=== PATIENT | male | born 1955 | race Caucasian/White ===

== ENCOUNTER 2025-07-29 23:55 | Inpatient (IN) | payer OTHER ==
[~2025-07-29] VITALS: Ht 180.3 cm; Wt 101.0 kg
[2025-07-29 23:57] VITALS: BP 201/103
[2025-07-30] VITALS (9 sets, daily range): BP systolic 140–184; BP diastolic 57–96
[2025-07-30] MEDS ORDERED: Albuterol Sulf/Ipratropium 3 ML VIAL NEB ONE ×2 (00:05→00:26)
[2025-07-30 00:27] LABS: BASO # 0.0 10*3/uL (0.0-0.1); BASO % 0.3 % (0.0-1.0); EOS # 0.0 10*3/uL (0.0-0.4); EOS % 0.1 % (1.0-4.0); MEAN CELL VOLUME 95.8 fl (80.0-94.0); MEAN CORPUSCULAR HGB 34.5 pg (27.0-31.0); MEAN PLATELET VOLUME 9.2 fl (9.6-12.3); MONO # 1.1 10*3/uL (0.1-1.0); MONO % 8.7 % (3.0-9.0); NEUT # 10.2 10*3/uL (2.3-7.9); NEUT % 79.8 % (47.0-73.0); NUCLEATED RED BLOOD CELL 0.0 10*3/uL (0.0-0.0); NUCLEATED RED BLOOD CELL 0.2 % (0.0-0.0); PLATELET COUNT AUTOMATED 197 10*3/uL (130-400); RED CELL DISTRI WIDTH 13.7 % (0-14.5)
[2025-07-30 00:53] LABS: BUN 25.0 mg/dl (9-23); SGPT/ALT 55.0 U/L (5-49)
[2025-07-30] MEDS ORDERED: MAGNESIUM SULFATE 50 ML IV SCH (01:00)
[2025-07-30] MEDS ORDERED: 'CLONIDINE0.1 MG PO (01:18)
[2025-07-30] MEDS ORDERED: PRAVASTATIN SOD40 MG PO (01:18)
[2025-07-30] MEDS ORDERED: BREYNA 160-4.10.3 GM INH (01:20)
[2025-07-30] MEDS ORDERED: FENOFIBRATE MI134 MG PO (01:20)
[2025-07-30] MEDS ORDERED: LISINOPRIL40 MG PO (01:21)
[2025-07-30] MEDS ORDERED: OMEPRAZOLE MAGN20 MG PO (01:21)
[2025-07-30] MEDS ORDERED: METOPROLOL TAR100 M1 PO (01:21)
[2025-07-30] MEDS ORDERED: VENT7GM INH (01:23)
[2025-07-30 02:17] LABS: ABG O2 SATURATION 98.8 % (94.0-98.0); ARTERIAL BLOOD GAS PH 7.332 (7.350-7.450); ARTERIAL BLOOD GAS PO2 145.7 mmHg (83.0-108.0)
[2025-07-30 02:18] LABS: ABG BASE EXCESS -9.1 mmol/L (-2.0-3.0)
[2025-07-30] MEDS ORDERED: ACETAMINOPHEN 325 MG TAB PO PRN (04:20)
[2025-07-30] MEDS ORDERED: Albuterol Sulf/Ipratropium 3 ML VIAL NEB PRN (04:25)
[2025-07-30 04:31] LABS: BILIRUBIN Negative (Negative); BLOOD 3+ (Negative); CLARITY Clear (Clear); COLOR Dark Yellow (Yellow); KETONE 2+ (Negative); LEUKO ESTERASE Negative (Negative); NITRITE Negative (Negative); PH 5.5 (4.5-8.0); SPECIFIC GRAVITY 1.020 (1.001-1.030); UROBILINOGEN 1.0 E.U./dl (0.0-1.0)
[2025-07-30] MEDS ORDERED: SODIUM CHLORIDE 0.9% 500 ML IV ONE (04:35)
[2025-07-30 04:50] LABS: BACTERIA 1+; MUCOUS 1+; WBC 0-2 wbc/hpf (0-5)
[2025-07-30] MEDS ORDERED: LEVOFLOXACIN 150 ML IV SCH (05:00)
[2025-07-30 08:16] LABS: BUN 18.0 mg/dl (9-23)
[2025-07-30] MEDS ORDERED: SODIUM CHLORIDE 0.9% 1,000 ML IV SCH (09:00)
[2025-07-30] MEDS ORDERED: FOLIC ACID 1 MG TAB PO SCH (10:00)
[2025-07-30] MEDS ORDERED: Thiamine 100 MG TAB PO SCH (10:00)
[2025-07-30 13:41] LABS: BUN 26.0 mg/dl (9-23)
[2025-07-30 16:17] LABS: BUN 26.0 mg/dl (9-23)
[2025-07-30] MEDS ORDERED: METHOCARBAMOL 750 MG TAB PO PRN (17:10)
[2025-07-30] MEDS ORDERED: hydrOXYzine 50 MG CAP PO PRN (17:10)
[2025-07-30] MEDS ORDERED: Water, Sterile 10 ML VIAL IV PRN (17:10)
[2025-07-30] MEDS ORDERED: Dicyclomine Hydrochloride 20 MG TAB PO PRN (17:10)
[2025-07-30] MEDS ORDERED: LORazepam 2 MG/ML VIAL IV PRN (17:10)
[2025-07-30] MEDS ORDERED: BUDESONIDE 0.5 MG AMP NEB SCH (18:00)
[2025-07-30] MEDS ORDERED: LORazepam 1 MG TAB PO SCH (18:00)
[2025-07-30 20:22] LABS: BUN 25.0 mg/dl (9-23)
[2025-07-30] MEDS ORDERED: SODIUM BICARBONATE 75 MEQ in SODIUM CHLORIDE 0.45% 1,000 ML IV ONE (20:50)
[2025-07-30] MEDS ORDERED: ATORVASTATIN CALCIUM 10 MG TAB PO SCH (22:00)
[2025-07-31] VITALS (9 sets, daily range): BP systolic 92–143; BP diastolic 47–87
[2025-07-31 00:26] LABS: BUN 27.0 mg/dl (9-23)
[2025-07-31 05:14] LABS: BUN 27.0 mg/dl (9-23)
[2025-07-31] MEDS ORDERED: OMEPRAZOLE 20 MG CAP PO SCH (06:00)
[2025-07-31 06:16] LABS: BASO # 0.0 10*3/uL (0.0-0.1); BASO % 0.2 % (0.0-1.0); EOS # 0.0 10*3/uL (0.0-0.4); EOS % 0.0 % (1.0-4.0); MEAN CELL VOLUME 96.5 fl (80.0-94.0); MEAN CORPUSCULAR HGB 34.2 pg (27.0-31.0); MEAN PLATELET VOLUME 9.8 fl (9.6-12.3); MONO # 0.9 10*3/uL (0.1-1.0); MONO % 7.7 % (3.0-9.0); NEUT # 9.5 10*3/uL (2.3-7.9); NEUT % 85.9 % (47.0-73.0); NUCLEATED RED BLOOD CELL 0.0 % (0.0-0.0); NUCLEATED RED BLOOD CELL 0.0 10*3/uL (0.0-0.0); PLATELET COUNT AUTOMATED 198 10*3/uL (130-400); RED CELL DISTRI WIDTH 13.7 % (0-14.5)
[2025-07-31 08:06] LABS: BUN 25.0 mg/dl (9-23)
[2025-07-31] MEDS ORDERED: SODIUM CHLORIDE 0.9% 1,000 ML IV SCH (08:20)
[2025-07-31] MEDS ORDERED: FENOFIBRATE 145 MG TAB PO SCH (10:00)
[2025-07-31] MEDS ORDERED: LISINOPRIL 40 MG TAB PO SCH (10:00)
[2025-07-31] MEDS ORDERED: Acetaminophen/Hydrocodone 5 MG/325 MG TABLET PO PRN (11:05)
[2025-07-31 14:24] LABS: BUN 25.0 mg/dl (9-23)
[2025-07-31] MEDS ORDERED: SODIUM CHLORIDE 1 GM TAB PO SCH ×2 (15:05→17:00)
[2025-07-31] MEDS ORDERED: LORazepam 1 MG TAB PO SCH (20:00)
[2025-08-01] VITALS (12 sets, daily range): BP systolic 104–148; BP diastolic 51–73
[2025-08-01 04:47] LABS: BUN 25 mg/dl (9-23)
[2025-08-01 06:05] LABS: BASO # 0.0 10*3/uL (0.0-0.1); BASO % 0.1 % (0.0-1.0); EOS # 0.0 10*3/uL (0.0-0.4); EOS % 0.0 % (1.0-4.0); MEAN CELL VOLUME 99.1 fl (80.0-94.0); MEAN CORPUSCULAR HGB 34.5 pg (27.0-31.0); MEAN PLATELET VOLUME 9.3 fl (9.6-12.3); MONO # 0.7 10*3/uL (0.1-1.0); MONO % 10.6 % (3.0-9.0); NEUT # 5.6 10*3/uL (2.3-7.9); NEUT % 83.2 % (47.0-73.0); NUCLEATED RED BLOOD CELL 0.0 % (0.0-0.0); NUCLEATED RED BLOOD CELL 0.0 10*3/uL (0.0-0.0); PLATELET COUNT AUTOMATED 160 10*3/uL (130-400); RED CELL DISTRI WIDTH 13.7 % (0-14.5)
[2025-08-01] MEDS ORDERED: SODIUM CHLORIDE 0.9% 1,000 ML IV SCH (11:05)
[2025-08-01] MEDS ORDERED: LORazepam 1 MG TAB PO PRN (22:00)
[2025-08-02] VITALS (11 sets, daily range): BP systolic 106–147; BP diastolic 49–75
[2025-08-02 05:37] LABS: BUN 24 mg/dl (9-23); SGPT/ALT 36 U/L (5-49)
[2025-08-02] MEDS ORDERED: LEVOFLOXACIN 150 ML IV SCH (06:00)
[2025-08-02 06:05] LABS: BASO # 0.0 10*3/uL (0.0-0.1); BASO % 0.1 % (0.0-1.0); EOS # 0.0 10*3/uL (0.0-0.4); EOS % 0.1 % (1.0-4.0); MEAN CELL VOLUME 97.5 fl (80.0-94.0); MEAN CORPUSCULAR HGB 34.3 pg (27.0-31.0); MEAN PLATELET VOLUME 9.7 fl (9.6-12.3); MONO # 0.8 10*3/uL (0.1-1.0); MONO % 11.5 % (3.0-9.0); NEUT # 5.5 10*3/uL (2.3-7.9); NEUT % 82.2 % (47.0-73.0); NUCLEATED RED BLOOD CELL 0.0 10*3/uL (0.0-0.0); NUCLEATED RED BLOOD CELL 0.6 % (0.0-0.0); PLATELET COUNT AUTOMATED 155 10*3/uL (130-400); RED CELL DISTRI WIDTH 13.9 % (0-14.5)
[2025-08-02] MEDS ORDERED: FUROSEMIDE 40 MG/4 ML VIAL IV ONE (12:10)
[2025-08-03] VITALS (8 sets, daily range): BP systolic 114–155; BP diastolic 51–80
[2025-08-03 06:00] LABS: BASO # 0.0 10*3/uL (0.0-0.1); BASO % 0.1 % (0.0-1.0); EOS # 0.0 10*3/uL (0.0-0.4); EOS % 0.0 % (1.0-4.0); MEAN CELL VOLUME 98.0 fl (80.0-94.0); MEAN CORPUSCULAR HGB 34.2 pg (27.0-31.0); MEAN PLATELET VOLUME 9.5 fl (9.6-12.3); MONO # 0.6 10*3/uL (0.1-1.0); MONO % 9.0 % (3.0-9.0); NEUT # 6.1 10*3/uL (2.3-7.9); NEUT % 84.9 % (47.0-73.0); NUCLEATED RED BLOOD CELL 0.0 % (0.0-0.0); NUCLEATED RED BLOOD CELL 0.0 10*3/uL (0.0-0.0); PLATELET COUNT AUTOMATED 160 10*3/uL (130-400); RED CELL DISTRI WIDTH 14.1 % (0-14.5)
[2025-08-03 06:15] LABS: BUN 21 mg/dl (9-23)
[2025-08-03] MEDS ORDERED: FUROSEMIDE 40 MG/4 ML VIAL IV ONE (11:15)
[2025-08-04] VITALS (7 sets, daily range): BP systolic 99–178; BP diastolic 53–82
[2025-08-04 05:29] LABS: BUN 24 mg/dl (9-23)
[2025-08-04] MEDS ORDERED: LORazepam 1 MG TAB PO ONE (20:15)
[2025-08-05] VITALS (9 sets, daily range): BP systolic 140–180; BP diastolic 67–94
[2025-08-05] MEDS ORDERED: LORazepam 1 MG TAB PO ONE (04:55)
[2025-08-05 06:38] LABS: BASO # 0.1 10*3/uL (0.0-0.1); BASO % 0.5 % (0.0-1.0); EOS # 0.2 10*3/uL (0.0-0.4); EOS % 1.4 % (1.0-4.0); MEAN CORPUSCULAR HGB 34.8 pg (27.0-31.0); MEAN PLATELET VOLUME 10.2 fl (9.6-12.3); MONO # 1.3 10*3/uL (0.1-1.0); MONO % 10.0 % (3.0-9.0); NEUT # 9.9 10*3/uL (2.3-7.9); NEUT % 79.3 % (47.0-73.0); NUCLEATED RED BLOOD CELL 0.0 % (0.0-0.0); NUCLEATED RED BLOOD CELL 0.0 10*3/uL (0.0-0.0); RED CELL DISTRI WIDTH 14.6 % (0-14.5)
[2025-08-05 06:39] LABS: MEAN CELL VOLUME 101.9 fl (80.0-94.0); PLATELET COUNT AUTOMATED 239 10*3/uL (130-400)
[2025-08-05 07:02] LABS: BUN 27 mg/dl (9-23)
[2025-08-05] MEDS ORDERED: LORazepam 1 MG TAB PO SCH (08:00)
[2025-08-06] VITALS: BP 143/73
[2025-08-06 06:32] LABS: BASO # 0.0 10*3/uL (0.0-0.1); BASO % 0.4 % (0.0-1.0); EOS # 0.1 10*3/uL (0.0-0.4); EOS % 1.0 % (1.0-4.0); MEAN CELL VOLUME 102.6 fl (80.0-94.0); MEAN CORPUSCULAR HGB 34.2 pg (27.0-31.0); MEAN PLATELET VOLUME 9.7 fl (9.6-12.3); MONO # 1.1 10*3/uL (0.1-1.0); MONO % 11.6 % (3.0-9.0); NEUT # 7.3 10*3/uL (2.3-7.9); NEUT % 76.4 % (47.0-73.0); NUCLEATED RED BLOOD CELL 0.0 % (0.0-0.0); NUCLEATED RED BLOOD CELL 0.0 10*3/uL (0.0-0.0); PLATELET COUNT AUTOMATED 198 10*3/uL (130-400); RED CELL DISTRI WIDTH 14.8 % (0-14.5)
[2025-08-06 07:10] LABS: BUN 25 mg/dl (9-23)
[2025-08-06 08:00] VITALS: BP 159/70
[2025-08-06] MEDS ORDERED: IOHEXOL 350 MG/ML 100 ML VIAL IV ONE ×2 (09:15→10:14)
[2025-08-06] MEDS ORDERED: SODIUM CHLORIDE 0.9% 100 ML BAG IV ONE (09:15)
[2025-08-06] MEDS ORDERED: LORazepam 1 MG TAB PO SCH ×2 (10:00)
[2025-08-06] MEDS ORDERED: SODIUM CHLORIDE 0.9% 100 ML IV ONE (10:14)
[2025-08-06 12:00] VITALS: BP 155/69
[2025-08-06 16:00] VITALS: BP 152/69
[2025-08-06 20:00] VITALS: BP 157/77
[2025-08-07] VITALS: BP 133/65
[2025-08-07 05:04] LABS: BUN 25 mg/dl (9-23); SGPT/ALT 28 U/L (5-49)
[2025-08-07 06:05] LABS: BASO # 0.0 10*3/uL (0.0-0.1); BASO % 0.3 % (0.0-1.0); EOS # 0.0 10*3/uL (0.0-0.4); EOS % 0.0 % (1.0-4.0); MEAN CELL VOLUME 102.5 fl (80.0-94.0); MEAN CORPUSCULAR HGB 33.7 pg (27.0-31.0); MEAN PLATELET VOLUME 10.1 fl (9.6-12.3); MONO # 1.1 10*3/uL (0.1-1.0); MONO % 11.0 % (3.0-9.0); NEUT # 7.7 10*3/uL (2.3-7.9); NEUT % 78.8 % (47.0-73.0); NUCLEATED RED BLOOD CELL 0.0 % (0.0-0.0); NUCLEATED RED BLOOD CELL 0.0 10*3/uL (0.0-0.0); PLATELET COUNT AUTOMATED 219 10*3/uL (130-400); RED CELL DISTRI WIDTH 14.7 % (0-14.5)
[2025-08-07 08:00] VITALS: BP 148/62
[2025-08-07 12:00] VITALS: BP 132/85
[2025-08-07] MEDS ORDERED: Acetaminophen/Hydrocodone 5 MG/325 MG TABLET PO PRN (15:40)
[2025-08-07 16:00] VITALS: BP 150/75
[2025-08-07 20:00] VITALS: BP 148/83
[2025-08-08] VITALS: BP 146/60
[2025-08-08 04:29] LABS: BASO # 0.0 10*3/uL (0.0-0.1); BASO % 0.2 % (0.0-1.0); EOS # 0.0 10*3/uL (0.0-0.4); EOS % 0.0 % (1.0-4.0); MEAN CELL VOLUME 103.4 fl (80.0-94.0); MEAN CORPUSCULAR HGB 33.9 pg (27.0-31.0); MEAN PLATELET VOLUME 10.3 fl (9.6-12.3); MONO # 0.6 10*3/uL (0.1-1.0); MONO % 5.7 % (3.0-9.0); NEUT # 9.1 10*3/uL (2.3-7.9); NEUT % 86.7 % (47.0-73.0); NUCLEATED RED BLOOD CELL 0.0 % (0.0-0.0); NUCLEATED RED BLOOD CELL 0.0 10*3/uL (0.0-0.0); PLATELET COUNT AUTOMATED 203 10*3/uL (130-400); RED CELL DISTRI WIDTH 14.4 % (0-14.5)
[2025-08-08 04:50] LABS: BUN 25 mg/dl (9-23)
[2025-08-08 08:00] VITALS: BP 140/76
[2025-08-08 12:00] VITALS: BP 138/60
[2025-08-08 16:00] VITALS: BP 145/70
[2025-08-08 20:00] VITALS: BP 150/73
[2025-08-08] MEDS ORDERED: NYSTATIN 15 GM BOT T SCH (22:00)
[2025-08-09] VITALS: BP 129/70
[2025-08-09 06:28] LABS: BUN 28 mg/dl (9-23)
[2025-08-09 06:50] LABS: MEAN CELL VOLUME 103.0 fl (80.0-94.0); MEAN CORPUSCULAR HGB 34.1 pg (27.0-31.0); MEAN PLATELET VOLUME 10.1 fl (9.6-12.3); NUCLEATED RED BLOOD CELL 0.0 % (0.0-0.0); NUCLEATED RED BLOOD CELL 0.0 10*3/uL (0.0-0.0); PLATELET COUNT AUTOMATED 206 10*3/uL (130-400); RED CELL DISTRI WIDTH 14.2 % (0-14.5)
[2025-08-09 06:55] LABS: MANUAL DIFF REFLEX YES
[2025-08-09 07:40] LABS: PLATELET SUFFICIENCY NORMAL (NORMAL); STOMATOCYTE FEW
[2025-08-09 08:00] VITALS: BP 133/63
[2025-08-09] MEDS ORDERED: predniSONE 10 MG TAB PO SCH (10:00)
[2025-08-09 12:00] VITALS: BP 109/47
[2025-08-09 16:00] VITALS: BP 127/69
[2025-08-09 20:00] VITALS: BP 152/74
[2025-08-10] VITALS: BP 140/72
[2025-08-10 08:00] VITALS: BP 145/68
[2025-08-10] MEDS ORDERED: Albuterol Sulf/Ipratropium 3 ML VIAL NEB ONE (11:50)
[2025-08-10 12:00] VITALS: BP 132/58
[2025-08-10] MEDS ORDERED: AMLODIPINE BESYL5 MG PO (13:05)
[2025-08-10] MEDS ORDERED: HYDROXYZINE PAM50 MG PO (13:05)
[2025-08-10] MEDS ORDERED: 'CLONIDINE0.1 MG PO (13:05)
[2025-08-10] MEDS ORDERED: PREDNISONE10 MG PO (13:05)
[2025-08-10] MEDS ORDERED: NYAMYC15 GM T (13:05)
[2025-08-10] MEDS ORDERED: HYDROCODONE-AC1 EAC1 PO (13:05)
[2025-08-10] MEDS ORDERED: VENTOLIN 02.5 MG/3 M NEB (13:05)
[2025-08-10] MEDS ORDERED: BIPAP INH (13:08)
== END 2025-08-10 15:03 | disposition home or self-care (01) | DRG 871 ==
LOC: ED 23:55 → ICCU 07-30 04:06 → EDHOLD 07-30 04:06 → ICCU 07-30 05:38 → 4E 08-04 14:37 → 5E 08-09 07:13
PROVIDERS: Emergency Medicine; Internal Medicine; Internal Medicine Nephrology; Nurse Practitioner Family; Student in an Organized Health Care Education/Training Program; ADMIT Internal Medicine; ATTEND Internal Medicine
PROC: 5A09357 Assistance with Respiratory Ventilation, Less than 24 Consecutive Hours, Continuous Positive Airway Pressure (ICD-10-PCS; principal; 2025-07-30)
PROC: 5A09357 Assistance with Respiratory Ventilation, Less than 24 Consecutive Hours, Continuous Positive Airway Pressure (ICD-10-PCS; 2025-07-31)
PROC: 5A09357 Assistance with Respiratory Ventilation, Less than 24 Consecutive Hours, Continuous Positive Airway Pressure (ICD-10-PCS; 2025-08-01)
PROC: 5A09357 Assistance with Respiratory Ventilation, Less than 24 Consecutive Hours, Continuous Positive Airway Pressure (ICD-10-PCS; 2025-08-02)
PROC: 5A09357 Assistance with Respiratory Ventilation, Less than 24 Consecutive Hours, Continuous Positive Airway Pressure (ICD-10-PCS; 2025-08-05)
PROC: 5A09357 Assistance with Respiratory Ventilation, Less than 24 Consecutive Hours, Continuous Positive Airway Pressure (ICD-10-PCS; 2025-08-06)
PROC: 5A09357 Assistance with Respiratory Ventilation, Less than 24 Consecutive Hours, Continuous Positive Airway Pressure (ICD-10-PCS; 2025-08-07)
PROC: 5A09357 Assistance with Respiratory Ventilation, Less than 24 Consecutive Hours, Continuous Positive Airway Pressure (ICD-10-PCS; 2025-08-08)
PROC: 5A09357 Assistance with Respiratory Ventilation, Less than 24 Consecutive Hours, Continuous Positive Airway Pressure (ICD-10-PCS; 2025-08-10)
DX: A41.9 Sepsis, unspecified organism (principal); J15.69 Pneumonia due to other Gram-negative bacteria; J96.01 Acute respiratory failure with hypoxia; N17.0 Acute kidney failure with tubular necrosis; J45.901 Unspecified asthma with (acute) exacerbation; E87.1 Hypo-osmolality and hyponatremia; J90 Pleural effusion, not elsewhere classified; F10.931 Alcohol use, unspecified with withdrawal delirium; J98.4 Other disorders of lung; E83.42 Hypomagnesemia; R74.01 Elevation of levels of liver transaminase levels; R60.0 Localized edema; R79.89 Other specified abnormal findings of blood chemistry; Z20.822 Contact with and (suspected) exposure to COVID-19; E78.5 Hyperlipidemia, unspecified; Z90.89 Acquired absence of other organs; Z87.891 Personal history of nicotine dependence; Z82.49 Family history of ischemic heart disease and other diseases of the circulatory system; Z80.1 Family history of malignant neoplasm of trachea, bronchus and lung; Z88.0 Allergy status to penicillin; Z88.5 Allergy status to narcotic agent; Z79.899 Other long term (current) drug therapy; Y90.0 Blood alcohol level of less than 20 mg/100 ml

== ENCOUNTER 2025-08-15 11:15 | Inpatient (IN) | payer OTHER ==
[~2025-08-15] VITALS: Ht 177.8 cm; Wt 93.2 kg
[2025-08-15] VITALS (43 sets, daily range): BP systolic 70–118; BP diastolic 40–75
[~2025-08-15 11:15] MED LIST: 'CLONIDINE0.1 MG PO; AMLODIPINE BESYL5 MG PO; BIPAP INH; BREYNA 160-4.10.3 GM INH; FENOFIBRATE MI134 MG PO; HYDROCODONE-AC1 EAC1 PO; HYDROXYZINE PAM50 MG PO; LISINOPRIL40 MG PO; METOPROLOL TAR100 M1 PO; NYAMYC15 GM T; OMEPRAZOLE MAGN20 MG PO; PRAVASTATIN SOD40 MG PO; PREDNISONE10 MG PO; VENT7GM INH; VENTOLIN 02.5 MG/3 M NEB
[2025-08-15] MEDS ORDERED: Amiodarone Hydrochloride 150 MG,IV 1 EA in DEXTROSE 5% 100 ML IV ONE (11:30)
[2025-08-15 11:48] LABS: BASO # 0.0 10*3/uL (0.0-0.1); BASO % 0.1 % (0.0-1.0); EOS # 0.0 10*3/uL (0.0-0.4); EOS % 0.2 % (1.0-4.0); MEAN CELL VOLUME 101.0 fl (80.0-94.0); MEAN CORPUSCULAR HGB 34.1 pg (27.0-31.0); MEAN PLATELET VOLUME 10.4 fl (9.6-12.3); MONO # 0.6 10*3/uL (0.1-1.0); MONO % 6.0 % (3.0-9.0); NEUT # 8.0 10*3/uL (2.3-7.9); NEUT % 83.4 % (47.0-73.0); NUCLEATED RED BLOOD CELL 0.0 % (0.0-0.0); NUCLEATED RED BLOOD CELL 0.0 10*3/uL (0.0-0.0); PLATELET COUNT AUTOMATED 251 10*3/uL (130-400); RED CELL DISTRI WIDTH 14.8 % (0-14.5)
[2025-08-15] MEDS ORDERED: Amiodarone Hydrochloride 900 MG in DEXTROSE 5% 500 ML IV SCH ×2 (12:05→17:00)
[2025-08-15] MEDS ORDERED: NOREPINEPHRINE BITARTRATE/D5W 250 ML IV SCH (12:10)
[2025-08-15 12:27] LABS: BUN 61.0 mg/dl (9-23); CPK 44.0 U/L (34-171)
[2025-08-15] MEDS ORDERED: MAGNESIUM SULFATE 100 ML IV ONE (12:45)
[2025-08-15] MEDS ORDERED: ACETAMINOPHEN 650 MG SUPP R PRN (16:50)
[2025-08-15] MEDS ORDERED: ACETAMINOPHEN 325 MG TAB PO PRN (16:50)
[2025-08-15] MEDS ORDERED: Ondansetron Hydrochloride 4 MG/2 ML VIAL IV PRN (16:50)
[2025-08-15] MEDS ORDERED: HEPARIN SODIUM 250 ML IV SCH (16:55)
[2025-08-15 17:52] LABS: ACT PARTIAL THROMBO TIME 22.0 SECONDS (20.0-32.1)
[2025-08-15] MEDS ORDERED: Acetaminophen/Hydrocodone 5 MG/325 MG TABLET PO PRN (19:05)
[2025-08-15] MEDS ORDERED: BUDESONIDE 0.5 MG AMP NEB SCH (19:25)
[2025-08-15] MEDS ORDERED: SIMVASTATIN 20 MG TAB PO SCH (22:00)
[2025-08-16] VITALS (20 sets, daily range): BP systolic 80–140; BP diastolic 46–76
[2025-08-16 05:30] LABS: BUN 53.0 mg/dl (9-23); SGPT/ALT 36.0 U/L (5-49)
[2025-08-16 06:29] LABS: BASO # 0.0 10*3/uL (0.0-0.1); BASO % 0.1 % (0.0-1.0); EOS # 0.0 10*3/uL (0.0-0.4); EOS % 0.0 % (1.0-4.0); MEAN CELL VOLUME 99.1 fl (80.0-94.0); MEAN CORPUSCULAR HGB 34.1 pg (27.0-31.0); MEAN PLATELET VOLUME 11.0 fl (9.6-12.3); MONO # 0.5 10*3/uL (0.1-1.0); MONO % 6.5 % (3.0-9.0); NEUT # 6.6 10*3/uL (2.3-7.9); NEUT % 83.1 % (47.0-73.0); NUCLEATED RED BLOOD CELL 0.0 % (0.0-0.0); NUCLEATED RED BLOOD CELL 0.0 10*3/uL (0.0-0.0); PLATELET COUNT AUTOMATED 269 10*3/uL (130-400); RED CELL DISTRI WIDTH 14.5 % (0-14.5)
[2025-08-16] MEDS ORDERED: LORazepam 0.5 MG TAB PO ONE (08:50)
[2025-08-16] MEDS ORDERED: Budesonide/Formoterol Fumarate 160/4.5 inhaler INH SCH (10:00)
[2025-08-16] MEDS ORDERED: OMEPRAZOLE 20 MG CAP PO SCH (10:00)
[2025-08-16] MEDS ORDERED: FENOFIBRATE 145 MG TAB PO SCH (10:00)
[2025-08-16] MEDS ORDERED: FUROSEMIDE 20 MG/2 ML VIAL IV SCH (12:00)
[2025-08-16] MEDS ORDERED: ASPIRIN ENTERIC COATED 81 MG TAB PO SCH (13:10)
[2025-08-16] MEDS ORDERED: Amiodarone Hydrochloride 150 MG,IV 1 EA in DEXTROSE 5% 100 ML IV ONE (20:20)
[2025-08-16] MEDS ORDERED: Menthol/Zinc Oxide 4 GM THIN T SCH (22:00)
[2025-08-17] VITALS: BP 132/71
[2025-08-17] MEDS ORDERED: SILICONE CONTACT LAYER WOUND DRESSING (VERSATEL) ONE (01:20)
[2025-08-17 06:27] LABS: BASO # 0.0 10*3/uL (0.0-0.1); BASO % 0.2 % (0.0-1.0); EOS # 0.0 10*3/uL (0.0-0.4); EOS % 0.6 % (1.0-4.0); MEAN CELL VOLUME 100.3 fl (80.0-94.0); MEAN CORPUSCULAR HGB 33.9 pg (27.0-31.0); MEAN PLATELET VOLUME 10.0 fl (9.6-12.3); MONO # 0.6 10*3/uL (0.1-1.0); MONO % 9.6 % (3.0-9.0); NEUT # 4.6 10*3/uL (2.3-7.9); NEUT % 69.4 % (47.0-73.0); NUCLEATED RED BLOOD CELL 0.0 % (0.0-0.0); NUCLEATED RED BLOOD CELL 0.0 10*3/uL (0.0-0.0); PLATELET COUNT AUTOMATED 263 10*3/uL (130-400); RED CELL DISTRI WIDTH 14.6 % (0-14.5)
[2025-08-17 07:11] LABS: SGPT/ALT 30.0 U/L (5-49)
[2025-08-17 07:23] LABS: BUN 42.0 mg/dl (9-23)
[2025-08-17 08:00] VITALS: BP 122/74
[2025-08-17] MEDS ORDERED: MAGNESIUM SULFATE 50 ML IV ONE ×2 (08:10→15:00)
[2025-08-17] MEDS ORDERED: POTASSIUM CHLORIDE 20 MEQ TAB PO ONE (08:10)
[2025-08-17] MEDS ORDERED: FUROSEMIDE 20 MG/2 ML VIAL IV SCH (10:00)
[2025-08-17] MEDS ORDERED: LORazepam 2 MG/ML VIAL IV SCH (10:00)
[2025-08-17] MEDS ORDERED: LORazepam 0.5 MG TAB PO SCH (10:00)
[2025-08-17] MEDS ORDERED: Amiodarone Hydrochloride 200 MG TAB PO SCH (10:30)
[2025-08-17 12:00] VITALS: BP 121/61
[2025-08-17 16:00] VITALS: BP 122/66
[2025-08-17] MEDS ORDERED: FUROSEMIDE 40 MG/4 ML VIAL IV SCH (16:30)
[2025-08-17 20:00] VITALS: BP 114/66
[2025-08-17] MEDS ORDERED: SIMVASTATIN 20 MG TAB PO SCH (22:00)
[2025-08-17] MEDS ORDERED: GUAIFENESIN 10 ML UDC PO ONE (22:20)
[2025-08-18] VITALS (7 sets, daily range): BP systolic 89–143; BP diastolic 62–88
[2025-08-18] MEDS ORDERED: SODIUM CHLORIDE 0.9% 500 ML IV ONE ×2 (03:05→15:55)
[2025-08-18 05:57] LABS: BASO # 0.0 10*3/uL (0.0-0.1); BASO % 0.2 % (0.0-1.0); EOS # 0.1 10*3/uL (0.0-0.4); EOS % 0.8 % (1.0-4.0); MEAN CELL VOLUME 99.7 fl (80.0-94.0); MEAN CORPUSCULAR HGB 33.8 pg (27.0-31.0); MEAN PLATELET VOLUME 10.0 fl (9.6-12.3); MONO # 0.5 10*3/uL (0.1-1.0); MONO % 7.7 % (3.0-9.0); NEUT # 4.4 10*3/uL (2.3-7.9); NEUT % 69.9 % (47.0-73.0); NUCLEATED RED BLOOD CELL 0.0 % (0.0-0.0); NUCLEATED RED BLOOD CELL 0.0 10*3/uL (0.0-0.0); PLATELET COUNT AUTOMATED 224 10*3/uL (130-400); RED CELL DISTRI WIDTH 14.6 % (0-14.5)
[2025-08-18 06:14] LABS: BUN 34.0 mg/dl (9-23); SGPT/ALT 25.0 U/L (5-49)
[2025-08-18] MEDS ORDERED: POTASSIUM CHLORIDE 20 MEQ TAB PO ONE (07:00)
[2025-08-18 10:44] LABS: BILIRUBIN Negative (Negative); BLOOD 2+ (Negative); CLARITY Clear (Clear); COLOR Yellow (Yellow); KETONE Trace (Negative); LEUKO ESTERASE Trace (Negative); NITRITE Negative (Negative); PH 5.5 (4.5-8.0); SPECIFIC GRAVITY 1.020 (1.001-1.030); UROBILINOGEN 0.2 E.U./dl (0.0-1.0)
[2025-08-18 10:55] LABS: BACTERIA 1+; RBC TNTC rbc/hpf (0-2)
[2025-08-19] VITALS: BP 117/90
[2025-08-19 05:58] LABS: BUN 27.0 mg/dl (9-23)
[2025-08-19 08:00] VITALS: BP 119/82
[2025-08-19] MEDS ORDERED: APIXABAN 5 MG TAB PO SCH (11:40)
[2025-08-19 12:00] VITALS: BP 102/65
[2025-08-19 16:00] VITALS: BP 117/61
[2025-08-19] MEDS ORDERED: FOAM BANDAGE 1 EACH BANDAGE T ONE (17:03)
[2025-08-19 20:00] VITALS: BP 107/64
[2025-08-20] VITALS (7 sets, daily range): BP systolic 91–124; BP diastolic 49–89
[2025-08-20 05:25] LABS: BUN 23.0 mg/dl (9-23)
[2025-08-20 05:59] LABS: BASO # 0.0 10*3/uL (0.0-0.1); BASO % 0.2 % (0.0-1.0); EOS # 0.1 10*3/uL (0.0-0.4); EOS % 0.9 % (1.0-4.0); MEAN CELL VOLUME 101.2 fl (80.0-94.0); MEAN CORPUSCULAR HGB 34.7 pg (27.0-31.0); MEAN PLATELET VOLUME 9.9 fl (9.6-12.3); MONO # 0.5 10*3/uL (0.1-1.0); MONO % 8.5 % (3.0-9.0); NEUT # 3.8 10*3/uL (2.3-7.9); NEUT % 66.5 % (47.0-73.0); NUCLEATED RED BLOOD CELL 0.0 % (0.0-0.0); NUCLEATED RED BLOOD CELL 0.0 10*3/uL (0.0-0.0); PLATELET COUNT AUTOMATED 219 10*3/uL (130-400); RED CELL DISTRI WIDTH 14.6 % (0-14.5)
[2025-08-20] MEDS ORDERED: DIGOXIN 500 MCG/2 ML AMP IV SCH (12:00)
[2025-08-20] MEDS ORDERED: FOAM BANDAGE 5X5 T ONE (15:48)
[2025-08-21] VITALS (9 sets, daily range): BP systolic 90–120; BP diastolic 48–74
[2025-08-21 09:05] LABS: BUN 21.0 mg/dl (9-23)
[2025-08-21] MEDS ORDERED: MAGNESIUM SULFATE 50 ML IV SCH (12:15)
[2025-08-21] MEDS ORDERED: DIGOXIN 125 MCG TAB PO SCH (14:00)
[2025-08-21] MEDS ORDERED: Sulfamethoxazole/Trimethopri 1 TAB TAB PO SCH (22:00)
[2025-08-22] VITALS: BP 90/52
[2025-08-22 04:51] VITALS: BP 122/73
[2025-08-22 05:36] LABS: BUN 20.0 mg/dl (9-23)
[2025-08-22 06:12] LABS: BASO # 0.0 10*3/uL (0.0-0.1); BASO % 0.1 % (0.0-1.0); EOS # 0.1 10*3/uL (0.0-0.4); EOS % 1.6 % (1.0-4.0); MEAN CELL VOLUME 99.7 fl (80.0-94.0); MEAN CORPUSCULAR HGB 33.6 pg (27.0-31.0); MEAN PLATELET VOLUME 10.2 fl (9.6-12.3); MONO # 0.6 10*3/uL (0.1-1.0); MONO % 8.2 % (3.0-9.0); NEUT # 4.8 10*3/uL (2.3-7.9); NEUT % 71.6 % (47.0-73.0); NUCLEATED RED BLOOD CELL 0.0 % (0.0-0.0); NUCLEATED RED BLOOD CELL 0.0 10*3/uL (0.0-0.0); PLATELET COUNT AUTOMATED 201 10*3/uL (130-400); RED CELL DISTRI WIDTH 14.3 % (0-14.5)
[2025-08-22 08:00] VITALS: BP 138/76
[2025-08-22 12:00] VITALS: BP 106/47
[2025-08-22] MEDS ORDERED: MAGNESIUM SULFATE 100 ML IV ONE (13:20)
[2025-08-22 16:00] VITALS: BP 95/62
[2025-08-22 20:00] VITALS: BP 115/58
[2025-08-22] MEDS ORDERED: HEPARIN SODIUM 10 UNIT/ML SYR IV SCH (21:45)
[2025-08-22] MEDS ORDERED: Acetaminophen/Hydrocodone 5 MG/325 MG TABLET PO ONE (23:35)
[2025-08-23] VITALS: BP 110/60
[2025-08-23] MEDS ORDERED: OMEPRAZOLE 20 MG CAP PO SCH (06:00)
[2025-08-23] MEDS ORDERED: FUROSEMIDE 40 MG/4 ML VIAL IV SCH ×2 (06:00→10:00)
[2025-08-23 06:10] LABS: BUN 20 mg/dl (9-23)
[2025-08-23 06:22] LABS: BASO # 0.0 10*3/uL (0.0-0.1); BASO % 0.1 % (0.0-1.0); EOS # 0.1 10*3/uL (0.0-0.4); EOS % 1.6 % (1.0-4.0); MEAN CELL VOLUME 99.7 fl (80.0-94.0); MEAN CORPUSCULAR HGB 33.8 pg (27.0-31.0); MEAN PLATELET VOLUME 10.2 fl (9.6-12.3); MONO # 0.6 10*3/uL (0.1-1.0); MONO % 8.5 % (3.0-9.0); NEUT # 5.4 10*3/uL (2.3-7.9); NEUT % 79.2 % (47.0-73.0); NUCLEATED RED BLOOD CELL 0.0 % (0.0-0.0); NUCLEATED RED BLOOD CELL 0.0 10*3/uL (0.0-0.0); PLATELET COUNT AUTOMATED 190 10*3/uL (130-400); RED CELL DISTRI WIDTH 14.3 % (0-14.5)
[2025-08-23 08:00] VITALS: BP 106/67
[2025-08-23] MEDS ORDERED: MAGNESIUM SULFATE 100 ML IV ONE (08:00)
[2025-08-23] MEDS ORDERED: GABAPENTIN 100 MG CAP PO SCH (10:00)
[2025-08-23 12:00] VITALS: BP 110/53
[2025-08-23 16:00] VITALS: BP 109/59
[2025-08-23 20:00] VITALS: BP 119/58
[2025-08-23] MEDS ORDERED: FOAM BANDAGE 1 EACH BANDAGE T ONE (21:52)
[2025-08-23] MEDS ORDERED: Amiodarone Hydrochloride 200 MG TAB PO SCH (22:00)
[2025-08-24] VITALS: BP 108/48
[2025-08-24 05:44] LABS: BUN 22.0 mg/dl (9-23)
[2025-08-24 06:17] LABS: BASO # 0.0 10*3/uL (0.0-0.1); BASO % 0.0 % (0.0-1.0); EOS # 0.1 10*3/uL (0.0-0.4); EOS % 1.7 % (1.0-4.0); MEAN CELL VOLUME 97.8 fl (80.0-94.0); MEAN CORPUSCULAR HGB 33.9 pg (27.0-31.0); MEAN PLATELET VOLUME 10.1 fl (9.6-12.3); MONO # 0.5 10*3/uL (0.1-1.0); MONO % 10.1 % (3.0-9.0); NEUT # 3.5 10*3/uL (2.3-7.9); NEUT % 68.3 % (47.0-73.0); NUCLEATED RED BLOOD CELL 0.0 % (0.0-0.0); NUCLEATED RED BLOOD CELL 0.0 10*3/uL (0.0-0.0); PLATELET COUNT AUTOMATED 177 10*3/uL (130-400); RED CELL DISTRI WIDTH 14.5 % (0-14.5)
[2025-08-24 08:00] VITALS: BP 121/48
[2025-08-24] MEDS ORDERED: FUROSEMIDE 20 MG/2 ML VIAL IV SCH (10:00)
[2025-08-24] MEDS ORDERED: FUROSEMIDE 40 MG/4 ML VIAL IV SCH (10:00)
[2025-08-24 12:00] VITALS: BP 108/49
[2025-08-24] MEDS ORDERED: LORazepam 1 MG TAB PO SCH (12:00)
[2025-08-24] MEDS ORDERED: REMDESIVIR 200 MG in SODIUM CHLORIDE 0.9% 210 ML IV ONE (14:45)
[2025-08-24 16:00] VITALS: BP 134/53
[2025-08-24 19:59] VITALS: BP 133/69
[2025-08-24] MEDS ORDERED: PREPARATION H SRF/SHARK LIVER 1 OZ TUBE R ONE (21:05)
[2025-08-24] MEDS ORDERED: FOAM BANDAGE 1 EACH BANDAGE T ONE (23:13)
[2025-08-24] MEDS ORDERED: Albuterol Sulf/Ipratropium 3 ML VIAL NEB ONE (23:48)
[2025-08-25] VITALS (11 sets, daily range): BP systolic 82–149; BP diastolic 42–78
[2025-08-25] MEDS ORDERED: Albuterol Sulf/Ipratropium 3 ML VIAL NEB ONE (00:15)
[2025-08-25 06:25] LABS: BASO # 0.0 10*3/uL (0.0-0.1); BASO % 0.2 % (0.0-1.0); EOS # 0.1 10*3/uL (0.0-0.4); EOS % 0.9 % (1.0-4.0); MEAN CELL VOLUME 99.1 fl (80.0-94.0); MEAN CORPUSCULAR HGB 33.1 pg (27.0-31.0); MEAN PLATELET VOLUME 9.8 fl (9.6-12.3); MONO # 0.3 10*3/uL (0.1-1.0); MONO % 4.2 % (3.0-9.0); NEUT # 5.5 10*3/uL (2.3-7.9); NEUT % 85.6 % (47.0-73.0); NUCLEATED RED BLOOD CELL 0.0 % (0.0-0.0); NUCLEATED RED BLOOD CELL 0.0 10*3/uL (0.0-0.0); PLATELET COUNT AUTOMATED 192 10*3/uL (130-400); RED CELL DISTRI WIDTH 14.2 % (0-14.5)
[2025-08-25] MEDS ORDERED: VASOPRESSIN 100 ML IV SCH (06:25)
[2025-08-25] MEDS ORDERED: Dexamethasone Sodium Phospha 4 MG/ML VIAL IV SCH (06:30)
[2025-08-25 07:19] LABS: BUN 24.0 mg/dl (9-23)
[2025-08-25] MEDS ORDERED: MAGNESIUM SULFATE 100 ML IV ONE (07:40)
[2025-08-25] MEDS ORDERED: LORazepam 1 MG TAB PO PRN (11:55)
[2025-08-25] MEDS ORDERED: FUROSEMIDE 40 MG/4 ML VIAL IV ONE ×2 (11:55→22:00)
[2025-08-25] MEDS ORDERED: REMDESIVIR 100 MG in SODIUM CHLORIDE 0.9% 230 ML IV SCH (14:00)
[2025-08-25] MEDS ORDERED: FUROSEMIDE 20 MG/2 ML VIAL IV SCH (18:00)
[2025-08-25] MEDS ORDERED: FUROSEMIDE 40 MG IV ONE (22:00)
[2025-08-26] VITALS: BP 138/58
[2025-08-26 01:53] LABS: BASO # 0.0 10*3/uL (0.0-0.1); BASO % 0.1 % (0.0-1.0); EOS # 0.0 10*3/uL (0.0-0.4); EOS % 0.0 % (1.0-4.0); MEAN CELL VOLUME 97.5 fl (80.0-94.0); MEAN CORPUSCULAR HGB 33.2 pg (27.0-31.0); MEAN PLATELET VOLUME 9.3 fl (9.6-12.3); MONO # 0.9 10*3/uL (0.1-1.0); MONO % 9.7 % (3.0-9.0); NEUT # 7.8 10*3/uL (2.3-7.9); NEUT % 82.4 % (47.0-73.0); NUCLEATED RED BLOOD CELL 0.0 % (0.0-0.0); NUCLEATED RED BLOOD CELL 0.0 10*3/uL (0.0-0.0); PLATELET COUNT AUTOMATED 206 10*3/uL (130-400); RED CELL DISTRI WIDTH 14.2 % (0-14.5)
[2025-08-26 02:27] LABS: BUN 24.0 mg/dl (9-23)
[2025-08-26 05:36] VITALS: BP 137/51
[2025-08-26] MEDS ORDERED: FUROSEMIDE 20 MG/2 ML VIAL IV SCH (06:00)
[2025-08-26] MEDS ORDERED: metroNIDAZOLE 500 MG TAB PO SCH (06:00)
[2025-08-26 06:13] LABS: BASO # 0.0 10*3/uL (0.0-0.1); BASO % 0.1 % (0.0-1.0); EOS # 0.0 10*3/uL (0.0-0.4); EOS % 0.0 % (1.0-4.0); MEAN CELL VOLUME 98.3 fl (80.0-94.0); MEAN CORPUSCULAR HGB 33.4 pg (27.0-31.0); MEAN PLATELET VOLUME 9.7 fl (9.6-12.3); MONO # 0.9 10*3/uL (0.1-1.0); MONO % 10.0 % (3.0-9.0); NEUT # 7.1 10*3/uL (2.3-7.9); NEUT % 80.5 % (47.0-73.0); NUCLEATED RED BLOOD CELL 0.0 % (0.0-0.0); NUCLEATED RED BLOOD CELL 0.0 10*3/uL (0.0-0.0); PLATELET COUNT AUTOMATED 190 10*3/uL (130-400); RED CELL DISTRI WIDTH 14.3 % (0-14.5)
[2025-08-26 06:17] LABS: BUN 25.0 mg/dl (9-23)
[2025-08-26 08:00] VITALS: BP 117/34
[2025-08-26] MEDS ORDERED: MAGNESIUM SULFATE 100 ML IV ONE (08:15)
[2025-08-26] MEDS ORDERED: Ciprofloxacin Hydrochloride 500 MG TAB PO SCH (10:00)
[2025-08-26 12:00] VITALS: BP 130/60
[2025-08-26 16:00] VITALS: BP 123/60
[2025-08-26] MEDS ORDERED: Albuterol Sulf/Ipratropium 3 ML VIAL NEB SCH (16:00)
[2025-08-26 20:00] VITALS: BP 116/49
[2025-08-27] VITALS: BP 130/53
[2025-08-27 05:26] LABS: BUN 25.0 mg/dl (9-23)
[2025-08-27 06:01] LABS: BASO # 0.0 10*3/uL (0.0-0.1); BASO % 0.1 % (0.0-1.0); EOS # 0.0 10*3/uL (0.0-0.4); EOS % 0.1 % (1.0-4.0); MEAN CELL VOLUME 97.5 fl (80.0-94.0); MEAN CORPUSCULAR HGB 33.3 pg (27.0-31.0); MEAN PLATELET VOLUME 9.8 fl (9.6-12.3); MONO # 0.4 10*3/uL (0.1-1.0); MONO % 4.0 % (3.0-9.0); NEUT # 7.7 10*3/uL (2.3-7.9); NEUT % 89.5 % (47.0-73.0); NUCLEATED RED BLOOD CELL 0.0 % (0.0-0.0); NUCLEATED RED BLOOD CELL 0.0 10*3/uL (0.0-0.0); PLATELET COUNT AUTOMATED 243 10*3/uL (130-400); RED CELL DISTRI WIDTH 14.4 % (0-14.5)
[2025-08-27 08:00] VITALS: BP 110/61
[2025-08-27 12:00] VITALS: BP 120/56
[2025-08-27 16:00] VITALS: BP 140/52
[2025-08-27] MEDS ORDERED: ALBUMIN 25% 50 ML IV ONE (19:30)
[2025-08-27 20:00] VITALS: BP 141/63
[2025-08-28] VITALS: BP 123/59
[2025-08-28 05:19] LABS: BUN 24.0 mg/dl (9-23); SGPT/ALT 20.0 U/L (5-49)
[2025-08-28 06:02] LABS: BASO # 0.0 10*3/uL (0.0-0.1); BASO % 0.1 % (0.0-1.0); EOS # 0.0 10*3/uL (0.0-0.4); EOS % 0.1 % (1.0-4.0); MEAN CELL VOLUME 96.5 fl (80.0-94.0); MEAN CORPUSCULAR HGB 33.3 pg (27.0-31.0); MEAN PLATELET VOLUME 9.5 fl (9.6-12.3); MONO # 0.5 10*3/uL (0.1-1.0); MONO % 6.8 % (3.0-9.0); NEUT # 6.8 10*3/uL (2.3-7.9); NEUT % 85.1 % (47.0-73.0); NUCLEATED RED BLOOD CELL 0.0 % (0.0-0.0); NUCLEATED RED BLOOD CELL 0.0 10*3/uL (0.0-0.0); PLATELET COUNT AUTOMATED 263 10*3/uL (130-400); RED CELL DISTRI WIDTH 14.3 % (0-14.5)
[2025-08-28 08:00] VITALS: BP 139/48
[2025-08-28] MEDS ORDERED: SUCRALFATE 1 GM TAB PO SCH (11:30)
[2025-08-28 12:00] VITALS: BP 133/55
[2025-08-28] MEDS ORDERED: MAGNESIUM SULFATE 50 ML IV ONE (12:45)
[2025-08-28 16:00] VITALS: BP 123/52
[2025-08-29] VITALS: BP 135/60
[2025-08-29 05:13] LABS: BUN 25.0 mg/dl (9-23); SGPT/ALT 18.0 U/L (5-49)
[2025-08-29 06:05] LABS: BASO # 0.0 10*3/uL (0.0-0.1); BASO % 0.1 % (0.0-1.0); EOS # 0.0 10*3/uL (0.0-0.4); EOS % 0.0 % (1.0-4.0); MEAN CELL VOLUME 95.2 fl (80.0-94.0); MEAN CORPUSCULAR HGB 33.2 pg (27.0-31.0); MEAN PLATELET VOLUME 9.5 fl (9.6-12.3); MONO # 0.7 10*3/uL (0.1-1.0); MONO % 8.3 % (3.0-9.0); NEUT # 6.7 10*3/uL (2.3-7.9); NEUT % 85.5 % (47.0-73.0); NUCLEATED RED BLOOD CELL 0.0 % (0.0-0.0); NUCLEATED RED BLOOD CELL 0.0 10*3/uL (0.0-0.0); PLATELET COUNT AUTOMATED 271 10*3/uL (130-400); RED CELL DISTRI WIDTH 13.8 % (0-14.5)
[2025-08-29] MEDS ORDERED: MAGNESIUM SULFATE 50 ML IV ONE (07:15)
[2025-08-29 08:00] VITALS: BP 135/62
[2025-08-29] MEDS ORDERED: POTASSIUM CHLORIDE 20 MEQ TAB PO ONE (08:00)
[2025-08-29 16:00] VITALS: BP 142/89
[2025-08-29 20:00] VITALS: BP 135/54
[2025-08-29 20:46] LABS: BILIRUBIN Negative (Negative); BLOOD Negative (Negative); CLARITY Clear (Clear); COLOR Yellow (Yellow); KETONE Negative (Negative); LEUKO ESTERASE Negative (Negative); NITRITE Negative (Negative); PH 5.5 (4.5-8.0); SPECIFIC GRAVITY 1.010 (1.001-1.030); UROBILINOGEN 0.2 E.U./dl (0.0-1.0)
[2025-08-29 20:53] LABS: URINE CHLORIDE, RANDOM < 20 mmol/L
[2025-08-29 21:04] LABS: BACTERIA 1+; MUCOUS TRACE
[2025-08-29] MEDS ORDERED: ACETAMINOPHEN 60 ML IV ONE (22:41)
[2025-08-30] VITALS: BP 132/59
[2025-08-30 05:01] LABS: BUN 22.0 mg/dl (9-23); SGPT/ALT 19.0 U/L (5-49)
[2025-08-30 06:29] LABS: BASO # 0.0 10*3/uL (0.0-0.1); BASO % 0.1 % (0.0-1.0); EOS # 0.0 10*3/uL (0.0-0.4); EOS % 0.0 % (1.0-4.0); MEAN CELL VOLUME 93.7 fl (80.0-94.0); MEAN CORPUSCULAR HGB 32.3 pg (27.0-31.0); MEAN PLATELET VOLUME 9.5 fl (9.6-12.3); MONO # 0.8 10*3/uL (0.1-1.0); MONO % 9.3 % (3.0-9.0); NEUT # 6.9 10*3/uL (2.3-7.9); NEUT % 85.2 % (47.0-73.0); NUCLEATED RED BLOOD CELL 0.0 % (0.0-0.0); NUCLEATED RED BLOOD CELL 0.0 10*3/uL (0.0-0.0); PLATELET COUNT AUTOMATED 318 10*3/uL (130-400); RED CELL DISTRI WIDTH 13.9 % (0-14.5)
[2025-08-30 08:00] VITALS: BP 121/50
[2025-08-30] MEDS ORDERED: FUROSEMIDE 40 MG/4 ML VIAL IV SCH (10:55)
[2025-08-30 12:00] VITALS: BP 130/57
[2025-08-30 16:45] VITALS: BP 125/51
[2025-08-30 20:00] VITALS: BP 127/63
[2025-08-31] VITALS: BP 151/56
[2025-08-31 05:52] VITALS: BP 137/68
[2025-08-31 06:13] LABS: BUN 27.0 mg/dl (9-23); SGPT/ALT 17.0 U/L (5-49)
[2025-08-31 08:00] VITALS: BP 116/70
[2025-08-31 12:00] VITALS: BP 148/85
[2025-08-31] MEDS ORDERED: PREPARATION H SRF/SHARK LIVER 1 OZ TUBE R SCH (14:00)
[2025-08-31 16:00] VITALS: BP 108/58
[2025-08-31 20:00] VITALS: BP 175/68
[2025-09-01] VITALS: BP 145/80
[2025-09-01 06:35] LABS: MEAN CELL VOLUME 91.8 fl (80.0-94.0); MEAN CORPUSCULAR HGB 31.5 pg (27.0-31.0); MEAN PLATELET VOLUME 9.5 fl (9.6-12.3); NUCLEATED RED BLOOD CELL 0.0 % (0.0-0.0); NUCLEATED RED BLOOD CELL 0.0 10*3/uL (0.0-0.0); PLATELET COUNT AUTOMATED 324 10*3/uL (130-400); RED CELL DISTRI WIDTH 13.6 % (0-14.5)
[2025-09-01 06:49] LABS: MANUAL DIFF REFLEX YES
[2025-09-01 06:56] LABS: BUN 27.0 mg/dl (9-23); SGPT/ALT 16.0 U/L (5-49)
[2025-09-01 07:26] LABS: PLATELET SUFFICIENCY NORMAL (NORMAL)
[2025-09-01 08:00] VITALS: BP 128/58
[2025-09-01 09:14] LABS: ABG O2 SATURATION 88.6 % (94.0-98.0); ARTERIAL BLOOD GAS PH 7.429 (7.350-7.450); ARTERIAL BLOOD GAS PO2 56.7 mmHg (83.0-108.0)
[2025-09-01 09:15] LABS: ABG BASE EXCESS 3.8 mmol/L (-2.0-3.0)
[2025-09-01] MEDS ORDERED: FUROSEMIDE 40 MG/4 ML VIAL IV ONE (10:40)
[2025-09-01] MEDS ORDERED: AMIODARONE HYD200 MG PO (10:54)
[2025-09-01] MEDS ORDERED: Ipratropium Brom3 ML NEB (10:54)
[2025-09-01] MEDS ORDERED: PREDNISONE10 MG PO ×2 (10:54→13:14)
[2025-09-01] MEDS ORDERED: LORAZEPAM1 MG PO ×2 (10:54→13:15)
[2025-09-01] MEDS ORDERED: GABAPENTIN100 M2 PO (10:54)
[2025-09-01] MEDS ORDERED: Carafate1 GM PO (10:54)
[2025-09-01] MEDS ORDERED: PANTOPRAZOLE SO40 MG PO (10:54)
[2025-09-01 12:00] VITALS: BP 128/60
[2025-09-01] MEDS ORDERED: MACROBID100 M1 PO (13:13)
[2025-09-01 16:00] VITALS: BP 148/88
[2025-09-01] MEDS ORDERED: LORazepam 2 MG/ML VIAL IV ONE ×2 (17:35→21:10)
[2025-09-01 20:00] VITALS: BP 145/90
[2025-09-02 06:27] LABS: BUN 29.0 mg/dl (9-23); SGPT/ALT 15.0 U/L (5-49)
[2025-09-02 08:00] VITALS: BP 144/81
[2025-09-02 12:00] VITALS: BP 104/60
[2025-09-02] MEDS ORDERED: Cefepime Hydrochloride 2 GM in SODIUM CHLORIDE 0.9% 50 ML IV SCH (13:00)
[2025-09-02] MEDS ORDERED: VANCOMYCIN HCL 1,250 MG in SODIUM CHLORIDE 0.9% 250 ML IV SCH (14:00)
[2025-09-02] MEDS ORDERED: diphenhydrAMINE hydrochloride 50 MG/ML VIAL IV ONE (15:55)
[2025-09-02 16:00] VITALS: BP 121/90
[2025-09-02 17:21] LABS: ABG BASE EXCESS 1.0 mmol/L (-2.0-3.0); ABG O2 SATURATION 94.4 % (94.0-98.0); ARTERIAL BLOOD GAS PH 7.258 (7.350-7.450); ARTERIAL BLOOD GAS PO2 77.1 mmHg (83.0-108.0)
[2025-09-02 20:00] VITALS: BP 100/53
[2025-09-03] VITALS: BP 112/63
[2025-09-03 00:44] LABS: ABG BASE EXCESS 0.3 mmol/L (-2.0-3.0); ABG O2 SATURATION 94.0 % (94.0-98.0); ARTERIAL BLOOD GAS PH 7.295 (7.350-7.450); ARTERIAL BLOOD GAS PO2 71.6 mmHg (83.0-108.0)
[2025-09-03 05:57] LABS: BUN 35.0 mg/dl (9-23)
[2025-09-03 06:00] LABS: MEAN CELL VOLUME 94.1 fl (80.0-94.0); MEAN CORPUSCULAR HGB 31.8 pg (27.0-31.0); MEAN PLATELET VOLUME 10.2 fl (9.6-12.3); NUCLEATED RED BLOOD CELL 0.0 % (0.0-0.0); NUCLEATED RED BLOOD CELL 0.0 10*3/uL (0.0-0.0); PLATELET COUNT AUTOMATED 257 10*3/uL (130-400); RED CELL DISTRI WIDTH 13.6 % (0-14.5)
[2025-09-03 06:04] LABS: MANUAL DIFF REFLEX YES
[2025-09-03 07:17] LABS: PLATELET SUFFICIENCY NORMAL (NORMAL)
[2025-09-03 08:00] VITALS: BP 125/52
[2025-09-03 12:00] VITALS: BP 129/95
[2025-09-03] MEDS ORDERED: SODIUM CHLORIDE 0.9% 500 ML IV ONE (18:19)
== END 2025-09-03 15:46 | disposition hospice, inpatient (51) | DRG 280 ==
LOC: ED 11:15 → ICCU 15:15 → 4E 15:15 → EDHOLD 15:15 → ICCU 15:22 → 4E 08-18 14:35
PROVIDERS: Emergency Medicine; Family Medicine; Internal Medicine; Internal Medicine Critical Care Medicine; Internal Medicine Nephrology; Registered Nurse; Student in an Organized Health Care Education/Training Program; ADMIT Internal Medicine; ATTEND Internal Medicine
PROC: 5A2204Z Restoration of Cardiac Rhythm, Single (ICD-10-PCS; 2025-08-15)
PROC: 02HV33Z Insertion of Infusion Device into Superior Vena Cava, Percutaneous Approach (ICD-10-PCS; 2025-08-15)
PROC: B548ZZA Ultrasonography of Superior Vena Cava, Guidance (ICD-10-PCS; 2025-08-15)
PROC: 0HBRXZZ Excision of Toe Nail, External Approach (ICD-10-PCS; 2025-08-23)
PROC: 0HBRXZZ Excision of Toe Nail, External Approach (ICD-10-PCS; 2025-08-23)
PROC: 0HBRXZZ Excision of Toe Nail, External Approach (ICD-10-PCS; 2025-08-23)
PROC: 0HBRXZZ Excision of Toe Nail, External Approach (ICD-10-PCS; 2025-08-23)
PROC: 0HBRXZZ Excision of Toe Nail, External Approach (ICD-10-PCS; 2025-08-23)
PROC: XW033E5 Introduction of Remdesivir Anti-infective into Peripheral Vein, Percutaneous Approach, New Technology Group 5 (ICD-10-PCS; principal; 2025-08-25)
PROC: 5A09357 Assistance with Respiratory Ventilation, Less than 24 Consecutive Hours, Continuous Positive Airway Pressure (ICD-10-PCS; 2025-09-01)
PROC: 5A09357 Assistance with Respiratory Ventilation, Less than 24 Consecutive Hours, Continuous Positive Airway Pressure (ICD-10-PCS; 2025-09-02)
PROC: 5A09357 Assistance with Respiratory Ventilation, Less than 24 Consecutive Hours, Continuous Positive Airway Pressure (ICD-10-PCS; 2025-09-03)
DX: I13.0 Hypertensive heart and chronic kidney disease with heart failure and stage 1 through stage 4 chronic kidney disease, or unspecified chronic kidney disease (principal); E43 Unspecified severe protein-calorie malnutrition; I21.A1 Myocardial infarction type 2; I50.33 Acute on chronic diastolic (congestive) heart failure; U07.1 COVID-19; N17.0 Acute kidney failure with tubular necrosis; J96.01 Acute respiratory failure with hypoxia; J12.82 Pneumonia due to coronavirus disease 2019; E87.1 Hypo-osmolality and hyponatremia; N30.01 Acute cystitis with hematuria; K55.9 Vascular disorder of intestine, unspecified; J91.8 Pleural effusion in other conditions classified elsewhere; J45.901 Unspecified asthma with (acute) exacerbation; K92.1 Melena; E87.0 Hyperosmolality and hypernatremia; J44.1 Chronic obstructive pulmonary disease with (acute) exacerbation; B35.1 Tinea unguium; I48.91 Unspecified atrial fibrillation; Z66 Do not resuscitate; D53.9 Nutritional anemia, unspecified; S51.012A Laceration without foreign body of left elbow, initial encounter; K21.9 Gastro-esophageal reflux disease without esophagitis; E78.00 Pure hypercholesterolemia, unspecified; I95.9 Hypotension, unspecified; F10.20 Alcohol dependence, uncomplicated; E66.9 Obesity, unspecified; F41.1 Generalized anxiety disorder; G62.9 Polyneuropathy, unspecified; N18.9 Chronic kidney disease, unspecified; S51.811A Laceration without foreign body of right forearm, initial encounter; F12.90 Cannabis use, unspecified, uncomplicated; Z79.899 Other long term (current) drug therapy; Z79.01 Long term (current) use of anticoagulants; Z79.2 Long term (current) use of antibiotics; Z88.0 Allergy status to penicillin; Z88.8 Allergy status to other drugs, medicaments and biological substances; Z87.891 Personal history of nicotine dependence; Z68.30 Body mass index [BMI] 30.0-30.9, adult; Z82.49 Family history of ischemic heart disease and other diseases of the circulatory system; Z80.1 Family history of malignant neoplasm of trachea, bronchus and lung; X58.XXXA Exposure to other specified factors, initial encounter; Y93.89 Activity, other specified; Y92.89 Other specified places as the place of occurrence of the external cause; Y99.8 Other external cause status; Y90.0 Blood alcohol level of less than 20 mg/100 ml

== ENCOUNTER 2025-09-03 15:57 | Inpatient (IN) | payer OTHER ==
[~2025-09-03] VITALS: Ht 177.8 cm; Wt 96.6 kg
[~2025-09-03 15:57] MED LIST changes: +AMIODARONE HYD200 MG PO; +Carafate1 GM PO; +GABAPENTIN100 M2 PO; +Ipratropium Brom3 ML NEB; +LORAZEPAM1 MG PO; +MACROBID100 M1 PO; +PANTOPRAZOLE SO40 MG PO
[2025-09-03 16:00] VITALS: BP 123/82
[2025-09-03] MEDS ORDERED: LORazepam 2 MG/ML VIAL IV PRN (16:15)
[2025-09-03] MEDS ORDERED: SODIUM CHLORIDE 0.9% 500 ML IV SCH (17:55)
[2025-09-03] MEDS ORDERED: HYDROMORPHONE IV SCH (18:00)
[2025-09-03] MEDS ORDERED: SODIUM CHLORIDE 0.9% IV SCH (18:00)
[2025-09-03 20:00] VITALS: BP 97/34
[2025-09-03] MEDS ORDERED: ATROPINE SULFATE 1% 2 ML BOTTLE OPH SCH (20:00)
[2025-09-03] MEDS ORDERED: VITAMIN A AND D 2 OZ TUBE T SCH (22:00)
[2025-09-03] MEDS ORDERED: PETROLATUM 42% 100 GM JAR T SCH (22:00)
[2025-09-03] MEDS ORDERED: ZINC OXIDE 1 OZ TUBE T SCH (22:00)
== END 2025-09-04 04:15 ==
LOC: 4E 15:57
PROVIDERS: ADMIT Student in an Organized Health Care Education/Training Program; ATTEND Student in an Organized Health Care Education/Training Program
DX: I21.4 Non-ST elevation (NSTEMI) myocardial infarction (principal); E43 Unspecified severe protein-calorie malnutrition; U07.1 COVID-19; N17.0 Acute kidney failure with tubular necrosis; E87.1 Hypo-osmolality and hyponatremia; N39.0 Urinary tract infection, site not specified; K55.9 Vascular disorder of intestine, unspecified; I48.91 Unspecified atrial fibrillation; I50.9 Heart failure, unspecified; I95.9 Hypotension, unspecified; D53.9 Nutritional anemia, unspecified; F10.10 Alcohol abuse, uncomplicated; G62.9 Polyneuropathy, unspecified; F41.9 Anxiety disorder, unspecified; Z66 Do not resuscitate; Y90.0 Blood alcohol level of less than 20 mg/100 ml; Z51.5 Encounter for palliative care; Z68.30 Body mass index [BMI] 30.0-30.9, adult